=== PATIENT | female | born 1975 | race Caucasian/White ===

== ENCOUNTER 2022-03-12 10:04 | Day surgery (SDC) | payer MEDICAID ==
[~2022-03-12] VITALS: Ht 162.6 cm; Wt 69.9 kg
[2022-03-12 10:42] LABS: HCG,QUAL RESULT NEGATIVE (NEGATIVE)
[2022-03-12] MEDS ORDERED: MIDAZOLAM HCL 5 MG/5 ML VIAL ONE (11:25)
[2022-03-12] MEDS ORDERED: MEPERIDINE HCL/PF 25 MG/ML DISP.SYRIN ONE (11:25)
[2022-03-12 14:35] VITALS: BP_SYST 107
== END 2022-03-12 13:25 | disposition home or self-care (01) ==
LOC: SDS 10:04
PROVIDERS: ATTEND Internal Medicine Gastroenterology
DX: Z12.11 Encounter for screening for malignant neoplasm of colon (principal); K64.8 Other hemorrhoids; K29.50 Unspecified chronic gastritis without bleeding; K21.9 Gastro-esophageal reflux disease without esophagitis; D64.9 Anemia, unspecified; B96.81 Helicobacter pylori [H. pylori] as the cause of diseases classified elsewhere; Z20.822 Contact with and (suspected) exposure to COVID-19; Z79.899 Other long term (current) drug therapy
CPT/HCPCS: 45378; 43239; 87426; 87081; 84703; 36415; 88305; 88312; 88313; 99152; 99153; G0378; J2250; J2175